=== PATIENT | male | born 1945 | race Caucasian/White ===

== ENCOUNTER 2020-12-13 09:08 | Day surgery (SDC) | payer MEDICARE ==
[2020-12-08 11:35] VITALS: BMI 32.3
--- NOTE | 2020-12-13 07:36 | P.GSHP ---
History of Present Illness H&P Date: 12/13/20 CHIEF COMPLAINT: GERD and colon screen HISTORY OF PRESENT ILLNESS: The patient is a 74-year-old male who presents with gastroesophageal reflux disease and need for colon screen. Upper and lower endoscopy were offered for further evaluation and management. PAST MEDICAL HISTORY: Please see list. PAST SURGICAL HISTORY: Please see list. MEDICATIONS: Please see list. ALLERGIES: Please see list. SOCIAL HISTORY: No illicit drug use FAMILY HISTORY: No reports of Crohn disease or ulcerative colitis. REVIEW OF ORGAN SYSTEMS: CONSTITUTIONAL: No reports of fevers or chills. GI: Denies any blood in stools or constipation. PHYSICAL EXAM: VITAL SIGNS: Stable GENERAL: Well-developed pleasant in no acute distress. HEENT: No scleral icterus. Extraocular movements grossly intact. Moist buccal mucosa. NECK: Supple without lymphadenopathy. CHEST: Unlabored respirations. Equal bilateral excursions. CARDIOVASCULAR: Regular rate and rhythm. Distal 2+ pulses. ABDOMEN: Soft, nondistended. MUSCULOSKELETAL: No clubbing, cyanosis, or edema. ASSESSMENT: 1. Gastroesophageal reflux disease 2. Colon screen. PLAN: 1. Recommend proceeding with an upper and lower endoscopy Past Medical History Additional Past Medical History / Comment(s): frequent diarrhea History of Any Multi-Drug Resistant Organisms: None Reported Past Surgical History: Cholecystectomy Additional Past Surgical History / Comment(s): zak cataracts, colonoscopy Past Anesthesia/Blood Transfusion Reactions: No Reported Reaction Smoking Status: Current every day smoker - Past Family History Mother Family Medical History: No Reported History Medications and Allergies Home Medications Medication Instructions Recorded Confirmed Type Hyoscyamine Sulfate [Levsin] 0.125 mg PO Q4H PRN 12/08/20 12/08/20 History Allergies Allergy/AdvReac Type Severity Reaction Status Date / Time Sulfa (Sulfonamide Allergy Unknown Verified 12/08/20 11:32 Antibiotics) Childhood
[~2020-12-13 09:08] MED LIST: LACTATED RINGERS 1,000 ML IV SCH; LIDOCAINE 1% (10MG/ML) FOR IV START INTRADERMA PRN
[2020-12-13 09:37] VITALS: TEMP 97.8
[2020-12-13] MEDS ORDERED: LACTATED RINGERS 1,000 ML IV ONE (09:37)
[2020-12-13] MEDS ORDERED: PROPOFOL 10 MG/ML 20 ML VIAL IV ONE (10:12)
[2020-12-13] MEDS ORDERED: LIDOCAINE 1% INJ 10MG/ML (20 ML MDV) ONE (10:12)
[2020-12-13] MEDS ORDERED: GLYCOPYRROLATE 0.2 MG/ML 2 ML VIAL ONE (10:12)
--- NOTE | 2020-12-13 10:25 | P.PCN ---
Date of Procedure: 12/13/20 Description of Procedure: PREOPERATIVE DIAGNOSIS: Gastrointestinal bleed POSTOPERATIVE DIAGNOSIS: Gastritis. Gastrointestinal bleed Diaphragmatic hiatal hernia OPERATION: Esophagogastroduodenoscopy with biopsies along antrum. SURGEON: Awilda Luque MD ANESTHESIA: MAC. INDICATIONS: The patient is a 74-year-old male who presents with a history of reflux disease. Benefits and risks of the procedure were described. Informed consent was obtained. DESCRIPTION: The patient was brought into the endoscopy suite and laid in the left lateral decubitus position. An Olympus gastroscope was passed along the posterior oropharynx down to the distal esophagus where the squamocolumnar junction was encountered at 37 cm from the incisors. The stomach was entered and no bile reflux was found. Additional findings are listed below. Biopsies with cold forceps were obtained of the antrum. The first through third portion of the duodenum was examined and unremarkable. Retroflexion of the scope confirmed Hill grade 3 lower esophageal valve. The squamocolumnar junction demonstrated LA grade B erosive esophagitis. The stomach was desufflated. The patient tolerated the procedure well. FINDINGS: Squamocolumnar junction 37 cm from the incisors. Diaphragmatic hiatus at 40 cm. Hiatal hernia, 3 cm Hill grade 3 lower esophageal valve. LA grade B erosive esophagitis. No active duodenitis. Chronic gastritis with recent bleed RECOMMENDATIONS: Upper endoscopy as needed.
[2020-12-13 10:49] VITALS: RESP 16
--- NOTE | 2020-12-13 11:20 | P.PCN ---
Date of Procedure: 12/13/20 Description of Procedure: PREOPERATIVE DIAGNOSIS: Abnormal stool test Gastrointestinal bleed POSTOPERATIVE DIAGNOSIS: Colitis, cecum Diverticulosis, sigmoid colon Sigmoid colon polyp Rectal polyp Internal/external hemorrhoid grade 3 OPERATION: Colonoscopy to the ileocecal valve and appendiceal orifice, cecum Colonoscopy with cold forceps biopsy SURGEON: Awilda Luque MD. ANESTHESIA: MAC. INDICATIONS: The patient is an 74-year-old male who presents with gastrointestinal bleeding including abnormal stool test. Benefits and risks were described and informed consent was obtained. DESCRIPTION OF PROCEDURE: The patient had undergone Sutab prep. The patient had been brought into the operating room and laid in the left lateral decubitus position. After adequate intravenous sedation, the rectum was examined with 2% lidocaine jelly. The prostate fossa was unremarkable. External hemorrhoids were encountered. The rectal tone was within normal limits. No lesions were palpated in the rectal vault. An Olympus colonoscope was advanced until the cecum, ileocecal valve and appendiceal orifice were clearly viewed. The prep was fair. Sigmoid diverticulosis was encountered. Colonic polyps were found and removed. Localized colitis on the cecum was identified with cold forcep biopsies obtain ed. Retroflexion of the scope demonstrated grade 3 internal hemorrhoids without active bleeding or inflammation. The colon was desufflated. The patient had tolerated the procedure well. Withdrawal time was over 6 minutes. FINDINGS: Aronchick preparation quality scale 3 (1-5) Internal hemorrhoids, grade 3 with recent inflammation External hemorrhoids, grade 3. No arteriovenous malformations. Sigmoid diverticulosis Colitis along sigmoid colon with cold forcep biopsies obtained. Removal of 2 polyps: - Cold forceps biopsy at 30 cm from the anal verge, 4 mm polyp, sigmoid colon - Cold forceps biopsy at 20 cm from the anal verge, 5 mm polyp, sigmoid colon - Cold forceps biopsy at 10 cm from the anal verge, 4 mm polyp, rectum RECOMMENDATIONS: Given severity of tubular adenomas, recommend repeat colonoscopy 3 years, 2023. Plan - Discharge Summary Discharge Rx Participant: No New Discharge Prescriptions: Continue Hyoscyamine Sulfate [Levsin] 0.125 mg PO Q4H PRN PRN Reason: Diarrhea Discharge Medication List Hyoscyamine Sulfate [Levsin] 0.125 mg PO Q4H PRN 12/08/20 [History] Follow up Appointment(s)/Referral(s): Awilda Luque MD [STAFF PHYSICIAN] - 12/21/20 Patient Instructions/Handouts: Advance Directives (DC), Diverticulosis Diet (GEN), Diverticulosis (GEN) Activity/Diet/Wound Care/Special Instructions: Repeat colonoscopy 3 years, 2023 Discharge Disposition: HOME SELF-CARE
[2020-12-13 11:22] VITALS: BP 158/77; PULSE 79
== END 2020-12-13 12:21 | disposition home or self-care (01) ==
LOC: ORWHC2ENDO 09:08
PROVIDERS: ATTEND Surgery Plastic and Reconstructive Surgery
DX: K52.9 Noninfective gastroenteritis and colitis, unspecified (principal); K57.30 Diverticulosis of large intestine without perforation or abscess without bleeding; K44.9 Diaphragmatic hernia without obstruction or gangrene; K29.50 Unspecified chronic gastritis without bleeding; K21.9 Gastro-esophageal reflux disease without esophagitis; F17.200 Nicotine dependence, unspecified, uncomplicated; K64.4 Residual hemorrhoidal skin tags; K64.8 Other hemorrhoids; K62.1 Rectal polyp; Z88.2 Allergy status to sulfonamides
CPT/HCPCS: 45380; 43239; 88305; J2001; J2704

== ENCOUNTER → 2020-12-28 | Outpatient (CLI) | payer MEDICARE ==
[2020-12-28 15:40] LABS: Basophils # (A) 0.04 X 10*3/uL (0.00-0.10); Basophils % (A) 0.6 %; Eosinophils # (A) 0.14 X 10*3/uL (0.04-0.35); Eosinophils % (A) 2.3 %; HCT 45.5 % (39.6-50.0); HGB 15.3 g/dL (13.0-17.0); Lymphocytes % (A) 32.2 %; MCH 33.8 pg (27.0-32.0); MCHC 33.6 g/dL (32.0-37.0); MCV 100.7 fL (80.0-97.0); Mean Platelet Volume 10.6 fL (9.5-12.2); Monocytes % (A) 11.3 %; Neutrophils # (A) 3.32 X 10*3/uL (1.80-7.70); Neutrophils % (A) 53.3 %; Platelet Count 276 X 10*3/uL (140-440); RBC 4.52 X 10*6/uL (4.40-5.60); RDW 14.8 % (11.5-14.5); WBC 6.22 X 10*3/uL (4.50-10.00)
[2020-12-29 02:05] LABS: Albumin 4.1 g/dL (3.80-4.90); Albumin/Globulin Ratio 1.46 (1.60-3.17); BUN/Creat Ratio 8.75 Ratio (12.00-20.00); Calcium 9.2 mg/dL (8.7-10.3); Chol/HDL Ratio 5.26; Globulin 2.8 g/dL (1.6-3.3); Potassium 4.3 mmol/L (3.5-5.5); Total Bilirubin 0.9 mg/dL (0.3-1.2); Total Protein 6.9 g/dL (6.2-8.2)
== END | disposition home or self-care (01) ==
LOC: LABWHC1 10:44
PROVIDERS: ATTEND Internal Medicine Cardiovascular Disease
DX: Z01.812 Encounter for preprocedural laboratory examination (principal); I10 Essential (primary) hypertension
CPT/HCPCS: 36415; 80053; 80061; 85025

== ENCOUNTER → 2021-03-09 | Outpatient (CLI) | payer MEDICARE ==
--- NOTE | 2021-03-09 19:46 | CT ---
EXAMINATION TYPE: CT abdomen pelvis w con DATE OF EXAM: 03/09/2021 COMPARISON: None HISTORY: abd pain, diverticulitis CT DLP: 1434.5 mGycm CONTRAST: CT scan of the abdomen and pelvis is performed with Oral Contrast and with IV Contrast, patient injec oliva with 100 mL of Isovue 300. FINDINGS: LUNG BASES-: No visible nodule. No infiltrate. LIVER/GB: The gallbladder is surgically absent. Nodular peripheral hepatic contour is compatible with cirrhotic liver disease. No intrahepatic lesion seen. No biliary ductal prominence are noted. PANCREAS: No inflammation. No distinct mass. SPLEEN: No splenic enlargement. No lesion seen. ADRENALS: No nodule. No thickening. KIDNEYS/BLADDER: No hydronephrosis. No nephrolithiasis. No distinct renal mass. Urinary bladder g rossly unremarkable. BOWEL: Normal appendix. Normal bowel caliber. No inflammation. Sigmoid diverticulosis without diver ticulitis. GENITAL ORGANS: No gross abnormality. LYMPH NODES: No greater than 1cm abdominal or pelvic lymph nodes are appreciated. AORTA: No significant abnormality. OSSEOUS STRUCTURES: No significant abnormality is seen. OTHER: No significant additional abnormality is seen. IMPRESSION: 1. Sigmoid diverticulosis without diverticulitis. 2. Cirrhotic liver disease.
== END | disposition home or self-care (01) ==
LOC: RADCTMAIN 17:09
PROVIDERS: ATTEND Surgery Plastic and Reconstructive Surgery
DX: K57.30 Diverticulosis of large intestine without perforation or abscess without bleeding (principal); K74.60 Unspecified cirrhosis of liver
CPT/HCPCS: 82565; 84520; 74177; 36415; Q9967

== ENCOUNTER → 2021-12-18 | Outpatient (CLI) | payer OTHER ==
--- NOTE | 2021-12-18 09:16 | US ---
EXAMINATION TYPE: US duplex aorta DATE OF EXAM: 12/18/2021 COMPARISON: CT CLINICAL HISTORY: Z87.891 AAA SCREENING. AAA screening TECHNIQUE: Multiple sonographic images of the abdominal aorta are obtained. FINDINGS: EXAM MEASUREMENTS: Abdominal Aorta: Proximal: 2.5 x 2.5 cm Mid: 1.9 x 1.8 cm Distal: 2.3 x 2.3 cm Bifurcation: MARY: 1.3 x 1.1 cm AUDRA: 1.2 x 1.0 cm SPINNER TENDER NOTES: Ectatic aorta without evidence of AAA, wall calcifications visualized IMPRESSION: No evidence for aortic aneurysm.
== END | disposition home or self-care (01) ==
LOC: RADUSWWP 08:46
DX: Z87.891 Personal history of nicotine dependence (principal)
CPT/HCPCS: 93979

== ENCOUNTER → 2022-01-16 | Outpatient (CLI) | payer OTHER ==
--- NOTE | 2022-01-16 21:17 | CTL ---
EXAMINATION TYPE: CT Low Dose Lung DATE OF EXAM ORDERED: 01/16/2022 HISTORY: Lung cancer screening CT DLP: 125.[address] CTDI: 3.4 mGy Automated exposure control for dose reduction was used. SCREENING VISIT: Initial screening COMPARISON: None TECHNIQUE: Low dose computed tomography scan was performed through the chest at 1 mm thick sections a nd reconstructed images in multiple planes at 1 mm and [address] DIAGNOSTIC QUALITY: Satisfactory FINDINGS: LUNG NODULES: None. LUNGS: COPD: Severity: None Fibrosis: Severity: None Lymph nodes: None Other findings: Left intrafissural lymph node series 6 image 32. RIGHT PLEURAL SPACE: Effusion: None Calcification: None Thickening: None Pneumothorax: None LEFT PLEURAL SPACE: Effusion: None Calcification: None Thickening: None Pneumothorax: None HEART: Heart Size: Normal Coronary Calcification: Moderate to severe coronary artery atherosclerosis. Pericardial Effusion: None OTHER FINDINGS: Upper abdomen: None Bony thorax: None Supraclavicular region: None Other: There is a nodular contour to the liver. Large distal paraesophageal lymph node measuring up t o 17 mm. Bilateral fat containing Bochdalek hernias. There is mild gynecomastia changes bilaterally. Moderate atherosclerosis of the arterial vasculature. IMPRESSION: 1. No clinically significant pulmonary nodules. 2. Enlarged distal para esophageal lymph node measuring up to 17 mm. Stable back to 03/09/2021. Clin ical correlation advised. 3. Moderate to severe coronary artery atherosclerosis. 4. Nodular contour to liver suggestive consistent with hepatic cirrhosis. Similar back to 03/09/[address] LUNG RAD AND CT CHEST RECOMMENDATION: Lung-Rad 1 Negative: Continue annual screening with LDCT in 12 months. S Modifier (other clinically significant findings): S, hepatic cirrhosis, moderate to severe coronary artery atherosclerosis.
== END | disposition home or self-care (01) ==
LOC: RADCTMAIN 17:36
DX: Z12.2 Encounter for screening for malignant neoplasm of respiratory organs (principal); Z87.891 Personal history of nicotine dependence
CPT/HCPCS: 71271

== ENCOUNTER → 2022-02-01 | Outpatient (CLI) | payer OTHER ==
--- NOTE | 2022-02-01 08:31 | US ---
EXAMINATION TYPE: US liver DATE OF EXAM: 02/01/2022 COMPARISON: NONE CLINICAL HISTORY: K74.60 CIRRHOSIS OF LIVER. known cirrhosis, cholecystectomy TECHNIQUE: Multiple sonographic images of the right upper quadrant are obtained. FINDINGS: EXAM MEASUREMENTS: Liver Length: 13.9 cm Gallbladder Wall: Surgically absent CBD: 0.6 cm Right Kidney: 11.7 x 4.0 x 4.7 cm Pancreas: wnl Liver: enlarged nodular heterogeneous liver Gallbladder: Surgically absent Evidence for sonographic Adams's sign: no CBD: wnl Right Kidney: wnl IMPRESSION: Hepatomegaly with mild fatty infiltration
== END | disposition home or self-care (01) ==
LOC: RADUSWWP 07:27
DX: K74.60 Unspecified cirrhosis of liver (principal)
CPT/HCPCS: 76705

== ENCOUNTER → 2022-10-10 | Outpatient (CLI) | payer OTHER ==
--- NOTE | 2022-10-10 12:55 | US ---
EXAMINATION TYPE: US liver DATE OF EXAM: 10/10/2022 COMPARISON: US 02/01/22 CLINICAL INDICATION: Male, 76 years old with history of K70.30 ALCOHOLIC CIRRHOSIS; Alcoholic cirrhos is. Cholecystectomy. TECHNIQUE: Multiple sonographic images of the right upper quadrant are obtained. FINDINGS: EXAM MEASUREMENTS: Liver Length: 19.5 cm Gallbladder: Surgically absent CBD: 0.62 cm Right Kidney: 11.6 x 5.4 x 5.9 cm SLAB CONDITIONER SUPERVISOR NOTES: Limited due to gas. Pancreas: Not well visualized. Only a small portion of the pancreatic head and neck is seen and show s no gross abnormal mobility. Liver: Coarsened parenchymal echotexture. Slight contour nodularity. No focal lesion seen. Gallbladder: Surgically absent Evidence for sonographic Adams's sign: No CBD: Borderline dilated. Right Kidney: No hydronephrosis or masses seen IMPRESSION: 1. Cirrhotic morphology of the liver. No sonographic evidence for hepatoma. 2. Bile duct is borderline dilated, acceptable given postcholecystectomy status and patient's age, st able caliber from prior.
== END | disposition home or self-care (01) ==
LOC: RADUSWWP 07:33
PROVIDERS: ATTEND Internal Medicine Gastroenterology
DX: K70.30 Alcoholic cirrhosis of liver without ascites (principal); K83.8 Other specified diseases of biliary tract; Z90.49 Acquired absence of other specified parts of digestive tract
CPT/HCPCS: 76705

== ENCOUNTER 2023-01-02 12:37 | Emergency (ER) | payer OTHER ==
--- NOTE | 2023-01-02 13:04 | ED ---
General Adult HPI - General Source: patient, RN notes reviewed Mode of arrival: ambulatory Limitations: no limitations <Yuval Prater - Last Filed: 01/02/23 13:03> <Nicole Calderon - Last Filed: 01/02/23 16:08> - General Stated complaint: rt foot pain Time Seen by Provider: 01/02/23 13:03 - History of Present Illness Initial comments: 77-year-old male presents emergency department with chief complaint of right foot pain. Patient states been painful last 3 days. Patient states that hurts to ambulate there is no pain at rest denies any wound lesions or sores denies trauma. Patient states there is had no new footwear he denies any other associated symptoms. (Yuval Prater) Maximilian is a pleasant 77-year-old male presents the ER today for evaluation of 3 days of pain that he describes as pain in his foot with walking. However upon further evaluation patient does localize the pain to the ankle and pain with range of motion. No injury, no trauma no previous episodes similar to this. No fevers no recent illness. (Nicole Calderon) - Related Data Home Medications Medication Instructions Recorded Confirmed Hyoscyamine Sulfate [Levsin] 0.125 mg PO Q4H PRN 12/08/20 12/08/20 Previous Rx's Medication Instructions Recorded Naproxen 250 mg PO Q8H PRN #30 tablet 01/02/23 Allergies Allergy/AdvReac Type Severity Reaction Status Date / Time Sulfa (Sulfonamide Allergy Unknown Verified 01/02/23 13:04 Antibiotics) Childhood Review of Systems ROS Other: All systems not noted in ROS Statement are negative. <Yuval Prater - Last Filed: 01/02/23 13:03> ROS Other: All systems not noted in ROS Statement are negative. <Nicole Calderon - Last Filed: 01/02/23 16:08> ROS Statement: Those systems with pertinent positive or pertinent negative responses have been documented in the HPI. Past Medical History Additional Past Medical History / Comment(s): frequent diarrhea History of Any Multi-Drug Resistant Organisms: None Reported Past Surgical History: Cholecystectomy Additional Past Surgical History / Comment(s): zak cataracts, colonoscopy Past Anesthesia/Blood Transfusion Reactions: No Reported Reaction Smoking Status: Current every day smoker - Past Family History Mother Family Medical History: No Reported History <Yuval Prater - Last Filed: 01/02/23 13:03> General Exam <Yuval Prater - Last Filed: 01/02/23 13:03> <Nicole Calderon - Last Filed: 01/02/23 16:08> - General Exam Comments Initial Comments: Visual Physical Exam Vital signs reviewed General: Well-appearing, nontoxic, no acute distress. Head: Normocephalic, atraumatic Eyes: PERRLA, EOMI ENT: Airway patent Chest: Nonlabored breathing Skin: No visual rash, normal skin tone Neuro: Alert and oriented 3 Musculoskeletal: No gross abnormalities (Yuval Prater) Physical Exam GENERAL: Patient is well-developed and well-nourished. Patient is nontoxic and well-hydrated and is in no distress. HENT: Normocephalic, Atraumatic. EYES: PERRL, EOMI PULMONARY: Unlabored respirations. CARDIOVASCULAR: RRR Warm and well perfused extremities ABDOMEN: Non-distended SKIN: No rashes or bruising : Deferred NEUROLOGIC: Alert and oriented Normal speech Normal gait MUSCULOSKELETAL: There is small effusion in the right ankle and there is pain with range of motion, minimal warmth or overlying redness PSYCHIATRIC: No SI/HI (Nicole Calderon) Course Vital Signs 01/02/23 13:01 Temperature 98.7 F Pulse Rate 70 Respiratory 16 Rate Blood Pressure 112/71 O2 Sat by Pulse 98 Oximetry Medical Decision Making <Yuval Prater - Last Filed: 01/02/23 13:03> - Lab Data Result diagrams: 01/02/23 13:38 01/02/23 13:38 <Nicole Calderon - Last Filed: 01/02/23 16:08> - Medical Decision Making I performed a quick note portion of this chart signed Yuval Prater PA-C (Yuval Prater) Was pt. sent in by a medical professional or institution ([facility], MILL ATTENDANT, urgent care, hospital, or long-term...) When possible be specific @ -No Did you speak to anyone other than the patient for history (EMS, parent, family, police, friend...)? What history was obtained from this source @ -No Did you review nursing and triage notes (agree or disagree)? Why? @ -I reviewed and agree with nursing and triage notes Were old charts reviewed (outside hosp., previous admission, EMS record, old EKG, old radiological studies, urgent care reports/EKG's, long-term records)? Report findings @ -No old charts were reviewed Differential Diagnosis (chest pain, altered mental status, abdominal pain women, abdominal pain men, vaginal bleeding, weakness, fever, dyspnea, syncope, headache, dizziness, GI bleed, back pain, seizure, CVA, palpatations, mental health, musculoskeletal)? @ -Differential Musculoskeletal Muscular strain, contusion, ligament sprain, fracture, arthritis, septic arthritis, bursitis, cellulitis, muscle spasm, nerve compression, DVT, arterial occlusion, herpes zoster, electrolyte abnormality, tumor.... This is not meant to be in all inclusive list EKG interpreted by me (3pts min.). @ -As above X-rays interpreted by me (1pt min.). @ -No obvious fractures or dislocations CT interpreted by me (1pt min.). @ -None done U/S interpreted by me (1pt. min.). @ -None done What testing was considered but not performed or refused? (CT, X-rays, U/S, labs)? Why? @ -None What meds were considered but not given or refused? Why? @ -None Did you discuss the management of the patient with other professionals (professionals i.e. , PA, MILL ATTENDANT, lab, RT, psych nurse, social services technician, representative personal service, teacher, staff readiness officer, case briefer)? Give summary @ -No Was smoking cessation discussed for >3mins.? @ -No Was critical care preformed (if so, how long)? @ -No Were there social determinants of health that impacted care today? How? (Homelessness, low income, unemployed, alcoholism, drug addiction, transportation, low edu. Level, literacy, decrease access to med. care, correction, rehab)? @ -No Was there de-escalation of care discussed even if they declined (Discuss DNR or withdrawal of care, Hospice)? DNR status @ -No What co-morbidities impacted this encounter? (DM, HTN, Smoking, COPD, CAD, Cancer, CVA, ARF, Chemo, Hep., AIDS, mental health diagnosis, sleep apnea, morbid obesity)? @ -None Was patient admitted / discharged? Hospital course, mention meds given and route, prescriptions, significant lab abnormalities, going to OR and other pertinent info. @ -The patient was seen and evaluated in the emergency department, history and physical exam are consistent with a right ankle pain, atraumatic, no Sirs criteria patient's quite comfortable appearing. There is a small effusion labs are obtained there is mild elevation of the inflammatory markers have a high suspicion for gout we'll treat as such. Advised patient follow with orthopedics for reevaluation or return to the ER for any acute worsening or development of new or concerning symptoms. Undiagnosed new problem with uncertain prognosis? @ -No Drug Therapy requiring intensive monitoring for toxicity (Heparin, Nitro, Insulin, Cardizem)? @ -No Were any procedures done? @ -No Diagnosis/symptom? @ -Acute gout Acute, or Chronic, or Acute on Chronic? @ -Acute Uncomplicated (without systemic symptoms) or Complicated (systemic symptoms)? @ -Uncomplicated Side effects of treatment? @ -No Exacerbation, Progression, or Severe Exacerbation? @ -No Poses a threat to life or bodily function? How? (Chest pain, [place], [place], pneumonia, PE, COPD, DKA, ARF, appy, cholecystitis, CVA, Diverticulitis, Homicidal, Suicidal, threat to staff... and all critical care pts) @ -No (Nicole Calderon) - Lab Data Lab Results 01/02/23 01/02/23 Range/Units 13:38 13:38 WBC 9.8 (3.8-10.6) k/uL RBC 4.04 L (4.30-5.90) m/uL Hgb 12.4 L (13.0-17.5) gm/dL Hct 38.0 L (39.0-53.0) % MCV 94.2 (80.0-100.0) fL MCH 30.7 (25.0-35.0) pg MCHC 32.6 (31.0-37.0) g/dL RDW 15.2 (11.5-15.5) % Plt Count 280 (150-450) k/uL MPV 7.9 Neutrophils % 69 % Lymphocytes % 17 % Monocytes % 9 % Eosinophils % 2 % Basophils % 0 % Neutrophils # 6.8 (1.3-7.7) k/uL Lymphocytes # 1.7 (1.0-4.8) k/uL Monocytes # 0.9 (0-1.0) k/uL Eosinophils # 0.2 (0-0.7) k/uL Basophils # 0.0 (0-0.2) k/uL ESR 23 H (0-15) mm/hr Sodium 139 (137-145) mmol/L Potassium 4.4 (3.5-5.1) mmol/L Chloride 104 (98-107) mmol/L Carbon Dioxide 26 (22-30) mmol/L Anion Gap 9 mmol/L BUN 14 (9-20) mg/dL Creatinine 0.88 (0.66-1.25) mg/dL Est GFR (CKD-EPI)AfAm >90 (>60 ml/min/1.73 sqM) Est GFR (CKD-EPI)NonAf 84 (>60 ml/min/1.73 sqM) Glucose 110 H (74-99) mg/dL Uric Acid 8.0 (3.5-8.5) mg/dL Calcium 8.8 (8.4-10.2) mg/dL Total Bilirubin 1.1 (0.2-1.3) mg/dL AST 46 (17-59) U/L ALT 23 (4-49) U/L Alkaline Phosphatase 77 (38-126) U/L C-Reactive Protein 5.8 H (<1.0) mg/dL Total Protein 6.9 (6.3-8.2) g/dL Albumin 3.5 (3.5-5.0) g/dL Disposition <Yuval Prater M - Last Filed: 01/02/23 13:03> Is patient prescribed a controlled substance at d/c from ED?: No <Nicole Calderon - Last Filed: 01/02/23 16:08> Clinical Impression: Gout attack Disposition: HOME SELF-CARE Condition: Stable Instructions (If sedation given, give patient instructions): Gout (ED) Prescriptions: Naproxen 250 mg PO Q8H PRN #30 tablet PRN Reason: Pain Referrals: [facility],Clinic [Primary Care Provider] - 1-2 days Rl Adams MD [STAFF PHYSICIAN] - 1-2 days
[2023-01-02 13:50] LABS: Basophils % (A) 0 %; Eosinophils # (A) 0.2 k/uL (0-0.7); Eosinophils % (A) 2 %; HGB 12.4 gm/dL (13.0-17.5); Lymphocytes # (A) 1.7 k/uL (1.0-4.8); Lymphocytes % (A) 17 %; MCH 30.7 pg (25.0-35.0); MCHC 32.6 g/dL (31.0-37.0); MCV 94.2 fL (80.0-100.0); Mean Platelet Volume 7.9; Monocytes # (A) 0.9 k/uL (0-1.0); Monocytes % (A) 9 %; Neutrophils # (A) 6.8 k/uL (1.3-7.7); Neutrophils % (A) 69 %; Platelet Count 280 k/uL (150-450); RBC 4.04 m/uL (4.30-5.90); RDW 15.2 % (11.5-15.5); WBC 9.8 k/uL (3.8-10.6)
--- NOTE | 2023-01-02 14:00 | XR ---
EXAMINATION TYPE: XR ankle complete RT DATE OF EXAM: 01/02/2023 COMPARISON: NONE HISTORY: Pain FINDINGS: Three views of the ankle demonstrate lucent lesion of the talar dome.. The joint spaces are preserve d. The osseous structures are intact. Diffuse soft tissue edema. Tiny plantar calcaneal spur. Pes p lanus deformity. Faint vascular calcifications. IMPRESSION: 1. 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 Recomme nd follow-up MRI.
[2023-01-02 14:10] LABS: ALT 23 U/L (4-49); AST 46 U/L (17-59); African American GFR (CKD) >90 (>60 ml/min/1.73 sqM); Albumin 3.5 g/dL (3.5-5.0); Alkaline Phosphatase 77 U/L (38-126); Anion Gap 9 mmol/L; Blood Urea Nitrogen 14 mg/dL (9-20); C Reactive Protein 5.8 mg/dL (<1.0); Calcium 8.8 mg/dL (8.4-10.2); Carbon Dioxide 26 mmol/L (22-30); Chloride 104 mmol/L (98-107); Glucose 110 mg/dL (74-99); Non-African American GFR(CKD) 84 (>60 ml/min/1.73 sqM); Potassium 4.4 mmol/L (3.5-5.1); Sodium 139 mmol/L (137-145); Total Bilirubin 1.1 mg/dL (0.2-1.3); Total Protein 6.9 g/dL (6.3-8.2)
--- NOTE | 2023-01-02 14:27 | XR ---
EXAMINATION TYPE: XR foot complete RT DATE OF EXAM: 01/02/2023 COMPARISON: NONE HISTORY: Pain TECHNIQUE: Three views are submitted. FINDINGS: There is a lucent lesion of the talar dome.. The joint spaces are preserved. The osseous structures are intact. Diffuse soft tissue edema. Tiny plantar calcaneal spur. Pes planus deformity. Faint vas cular calcifications. Severe arthropathy first MTP with hallux valgus deformity. Complete loss of joint space. IMPRESSION: 1. 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 Recomme nd follow-up MRI. 2. Severe first MTP joint hypertrophic arthropathy.
[2023-01-02 14:43] LABS: Erythrocyte Sedimentation Rate 23 mm/hr (0-15)
[2023-01-02] MEDS ORDERED: COLCHICINE 0.6 MG EACH PO STA (15:24)
[2023-01-02 16:08] VITALS: BP 135/66; PULSE 60; RESP 18; TEMP 97.7
[2023-01-02] MEDS ORDERED: COLCHICINE 0.6 MG EACH PO ONE (16:30)
== END 2023-01-02 16:06 | disposition home or self-care (01) ==
LOC: EC 12:37
DX: M10.9 Gout, unspecified (principal); F17.200 Nicotine dependence, unspecified, uncomplicated; Z88.2 Allergy status to sulfonamides; Z90.49 Acquired absence of other specified parts of digestive tract
CPT/HCPCS: 36415; 80053; 84550; 85025; 85652; 86140; 99283

== ENCOUNTER → 2023-03-20 | Outpatient (CLI) | payer OTHER ==
--- NOTE | 2023-03-20 15:39 | CTL ---
EXAMINATION TYPE: CT Low Dose Lung DATE OF EXAM ORDERED: 03/20/2023 HISTORY: Z87.891 PERSONAL HISTORY OF NICOTINE DEPENDENCE. Lung cancer screening. Current smoker, [address] DLP: 94.[address] CTDI: 2.4 mGy Automated exposure control for dose reduction was used. SCREENING VISIT: Follow-up COMPARISON: CT low-dose lung 01/16/2022 TECHNIQUE: Low dose computed tomography scan was performed through the chest at 1 mm thick sections a nd reconstructed images in multiple planes at 1 mm and [address] DIAGNOSTIC QUALITY: Satisfactory FINDINGS: LUNG NODULES: No clinically significant pulmonary nodules. Stable 3 mm left intrafissural lymph node (series 6, image 34). No new or enlarging pulmonary nodules. LUNGS: COPD: Severity: Mild Fibrosis: Severity: None Lymph nodes: None Other findings: None RIGHT PLEURAL SPACE: Effusion: None Calcification: None Thickening: None Pneumothorax: None LEFT PLEURAL SPACE: Effusion: None Calcification: None Thickening: None Pneumothorax: None HEART: Heart Size: Normal Coronary Calcification: Moderate to severe Pericardial Effusion: None OTHER FINDINGS: Upper abdomen: Stable distal paraesophageal 1.2 cm short axis lymph node. Similar nodular contour to the liver. Bony thorax: Mild degenerative changes of the thoracic spine. Supraclavicular region: None Other: Fat filled bilateral Bochdalek hernias. Moderate atherosclerotic calcification of the aorta is branches. IMPRESSION: 1. No clinically significant pulmonary nodule. 2. Stable enlarged distal paraesophageal lymph node. 3. Similar nodular contour to the liver. Correlate for cirrhosis. CT LUNG RAD AND CT CHEST RECOMMENDATION: Lung-Rad 1 Negative: Continue annual screening with LDCT in 12 months.
== END | disposition home or self-care (01) ==
LOC: RADCTMAIN 15:06
DX: Z12.2 Encounter for screening for malignant neoplasm of respiratory organs (principal); F17.210 Nicotine dependence, cigarettes, uncomplicated; R91.1 Solitary pulmonary nodule; R59.0 Localized enlarged lymph nodes
CPT/HCPCS: 71271

== ENCOUNTER 2023-08-14 11:40 | Emergency (ER) | payer OTHER ==
[2023-08-14 12:25] VITALS: TEMP 97.8
--- NOTE | 2023-08-14 13:24 | ED ---
Recheck HPI - General Chief Complaint: Recheck/Abnormal Lab/Rx Stated Complaint: transfusion Time Seen by Provider: 08/14/23 13:14 Source: patient, RN notes reviewed, old records reviewed Mode of arrival: wheelchair Limitations: no limitations - History of Present Illness Initial Comments: This is a 77-year-old male for recheck outpatient lab testing low hemoglobin. Patient presents to us with a recent surgery, patient about 4 to 5 weeks ago had his hemoglobin tested and was found to have low hemoglobin of 10-1/2, most recent hemoglobin test was in the low sevens. Patient is not on blood thinners denies abdominal pain nausea vomiting or diarrhea. Patient denies any active bleeding, but he does feel weak lightheaded dizzy at times short of breath MD Complaint: abnormal lab (Low hemoglobin) -: unknown Returns Today for: Called Because of Abnormal Lab/Test Symptoms Since Prior Visit: no new symptoms Context: called for abnormal lab result Associated Symptoms: none Treatments Prior to Arrival: other (0) - Related Data Home Medications Medication Instructions Recorded Confirmed Hyoscyamine Sulfate [Levsin] 0.125 mg PO Q4H PRN 12/08/20 12/08/20 Previous Rx's Medication Instructions Recorded Naproxen 250 mg PO Q8H PRN #30 tablet 01/02/23 Allergies Allergy/AdvReac Type Severity Reaction Status Date / Time Sulfa (Sulfonamide Allergy Unknown Verified 08/14/23 11:57 Antibiotics) Childhood Review of Systems ROS Statement: Those systems with pertinent positive or pertinent negative responses have been documented in the HPI. ROS Other: All systems not noted in ROS Statement are negative. Past Medical History Past Medical History: Hypertension Additional Past Medical History / Comment(s): frequent diarrhea History of Any Multi-Drug Resistant Organisms: None Reported Past Surgical History: Cholecystectomy Additional Past Surgical History / Comment(s): zak cataracts, colonoscopy Past Anesthesia/Blood Transfusion Reactions: No Reported Reaction Past Psychological History: No Psychological Hx Reported Smoking Status: Current every day smoker Past Alcohol Use History: Occasional Past Drug Use History: Marijuana - Past Family History Mother Family Medical History: No Reported History General Exam Limitations: no limitations General appearance: alert, in no apparent distress Head exam: Present: atraumatic, normocephalic, normal inspection Eye exam: Present: normal appearance, PERRL, EOMI. Absent: scleral icterus, conjunctival injection, periorbital swelling ENT exam: Present: normal exam, mucous membranes moist Neck exam: Present: normal inspection. Absent: tenderness, meningismus, lymphadenopathy Respiratory exam: Present: normal lung sounds bilaterally. Absent: respiratory distress, wheezes, rales, rhonchi, stridor Cardiovascular Exam: Present: regular rate, normal rhythm, normal heart sounds. Absent: systolic murmur, diastolic murmur, rubs, gallop, clicks GI/Abdominal exam: Present: soft, normal bowel sounds. Absent: distended, tenderness, guarding, rebound, rigid Extremities exam: Present: normal inspection, full ROM, normal capillary refill. Absent: tenderness, pedal edema, joint swelling, calf tenderness Back exam: Present: normal inspection Neurological exam: Present: alert, oriented X3, CN II-XII intact Psychiatric exam: Present: normal affect, normal mood Skin exam: Present: warm, dry, intact, normal color. Absent: rash Course Vital Signs 08/14/23 08/14/23 08/14/23 11:52 16:47 18:05 Temperature 97.8 F Pulse Rate 59 L 67 58 L Respiratory 18 18 16 Rate Blood Pressure 135/67 160/51 125/51 O2 Sat by Pulse 99 99 98 Oximetry - Reevaluation(s) Reevaluation #1: 08/14/23 15:28 Medical records reviewed Reevaluation #2: 08/14/23 15:28 Patient remains asymptomatic Reevaluation #3: 08/14/23 15:29 Patient informed of results and questions answered Reevaluation #4: Was pt. sent in by a medical professional or institution (, PA, MAILROOM COURIER, urgent care, hospital, or care home...) When possible be specific @ -no Did you speak to anyone other than the patient for history (EMS, parent, family, police, friend...)? What history was obtained from this source @ -no Did you review nursing and triage notes (agree or disagree)? Why? @ -agree Are old charts reviewed (outside hosp., previous admission, EMS record, old EKG, old radiological studies, urgent care reports/EKG's, care home records)? Report findings @ -yes Differential Diagnosis (chest pain, altered mental status, abdominal pain women, abdominal pain men, vaginal bleeding, weakness, fever, dyspnea, syncope, headache, dizziness, GI bleed, back pain, seizure, CVA, palpatations, mental health, musculoskeletal)? @ -prior EKG interpreted by me (3pts min.). @ -yes X-rays interpreted by me (1pt min.). @ -no CT interpreted by me (1pt min.). @ -no U/S interpreted by me (1pt. min.). @ -no What testing was considered but not performed or refused? (CT, X-rays, U/S, labs)? Why? @ -none What meds were considered but not given or refused? Why? @ -none Did you discuss the management of the patient with other professionals (professionals i.e. Dr., PA, MAILROOM COURIER, lab, RT, psych nurse, social services, county demonstrator, teacher, chief security and safety officer, case packer and sealer)? Give summary @ -no Was smoking cessation discussed for >3mins.? @ -no Was critical care preformed (if so, how long)? @ -yes31 Were there social determinants of health that impacted care today? How? (Homelessness, low income, unemployed, alcoholism, drug addiction, transportation, low edu. Level, literacy, decrease access to med. care, assisted, rehab)? @ -none Was there de-escalation of care discussed even if they declined (Discuss DNR or withdrawal of care, Hospice)? DNR status @ -no What co-morbidities impacted this encounter? (DM, HTN, Smoking, COPD, CAD, Cancer, CVA, ARF, Chemo, Hep., AIDS, mental health diagnosis, sleep apnea, morbid obesity)? @ -none Was patient admitted / discharged? Hospital course, mention meds given and route, prescriptions, significant lab abnormalities, going to OR and other pertinent info. @ - 77 male to ER for evaluation, significant anemia with fecal occult blood test positive stool. Patient is not on any blood thinners, will be transferred for further management of low hemoglobin as he recently had a drop from 10-7 Transferred Admitted to inpatient Undiagnosed new problem with uncertain prognosis? @ -no Drug Therapy requiring intensive monitoring for toxicity (Heparin, Nitro, Insulin, Cardizem)? @ -no Were any procedures done? @ -no Diagnosis/symptom? @ -Anemia Acute, or Chronic, or Acute on Chronic? @ -Acute Uncomplicated (without systemic symptoms) or Complicated (systemic symptoms)? @ -Complicated Side effects of treatment? @ -no Exacerbation, Progression, or Severe Exacerbation? @ -exacerbation Poses a threat to life or bodily function? How? (Chest pain, USA, PR, pneumonia, PE, COPD, DKA, ARF, appy, cholecystitis, CVA, Diverticulitis, Homicidal, Suicidal, threat to staff... and all critical care pts) @ -yes significant anemia - Consultations Consultation #1: Spoke with [facility] who accept patient in transfer Medical Decision Making - Medical Decision Making 77 male to ER for evaluation, significant anemia with fecal occult blood test positive stool. Patient is not on any blood thinners, will be transferred for further management of low hemoglobin as he recently had a drop from 10-7 - Lab Data Result diagrams: 08/14/23 13:57 08/14/23 13:57 Lab Results 08/14/23 08/14/23 08/14/23 Range/Units 13:54 13:57 13:57 WBC 4.7 (3.8-10.6) k/uL RBC 2.57 L (4.30-5.90) m/uL Hgb 7.3 L (13.0-17.5) gm/dL Hct 24.4 L (39.0-53.0) % MCV 95.1 (80.0-100.0) fL MCH 28.5 (25.0-35.0) pg MCHC 30.0 L (31.0-37.0) g/dL RDW 16.0 H (11.5-15.5) % Plt Count 235 (150-450) k/uL MPV 8.7 Neutrophils % 62 % Lymphocytes % 23 % Monocytes % 9 % Eosinophils % 2 % Basophils % 1 % Neutrophils # 2.9 (1.3-7.7) k/uL Lymphocytes # 1.1 (1.0-4.8) k/uL Monocytes # 0.4 (0-1.0) k/uL Eosinophils # 0.1 (0-0.7) k/uL Basophils # 0.0 (0-0.2) k/uL Hypochromasia Marked PT 11.8 (10.0-12.5) sec INR 1.1 (<1.2) Sodium (137-145) mmol/L Potassium (3.5-5.1) mmol/L Chloride (98-107) mmol/L Carbon Dioxide (22-30) mmol/L Anion Gap mmol/L BUN (9-20) mg/dL Creatinine (0.66-1.25) mg/dL Est GFR (CKD-EPI)AfAm (>60 ml/min/1.73 sqM) Est GFR (CKD-EPI)NonAf (>60 ml/min/1.73 sqM) Glucose (74-99) mg/dL Calcium (8.4-10.2) mg/dL Total Bilirubin (0.2-1.3) mg/dL AST (17-59) U/L ALT (4-49) U/L Alkaline Phosphatase (38-126) U/L Total Protein (6.3-8.2) g/dL Albumin (3.5-5.0) g/dL Stool Occult Blood (Negative) Blood Type O Positive Blood Type Confirm Blood Type Recheck No Previous Record Bld Type Recheck Status CABO Indicated Antibody Screen NEGATIVE Spec Expiration Date 08/17/2023 - 235308/14/23 08/14/23 08/14/23 Range/Units 13:57 14:15 16:43 WBC (3.8-10.6) k/uL RBC (4.30-5.90) m/uL Hgb (13.0-17.5) gm/dL Hct (39.0-53.0) % MCV (80.0-100.0) fL MCH (25.0-35.0) pg MCHC (31.0-37.0) g/dL RDW (11.5-15.5) % Plt Count (150-450) k/uL MPV Neutrophils % % Lymphocytes % % Monocytes % % Eosinophils % % Basophils % % Neutrophils # (1.3-7.7) k/uL Lymphocytes # (1.0-4.8) k/uL Monocytes # (0-1.0) k/uL Eosinophils # (0-0.7) k/uL Basophils # (0-0.2) k/uL Hypochromasia PT (10.0-12.5) sec INR (<1.2) Sodium 142 (137-145) mmol/L Potassium 3.9 (3.5-5.1) mmol/L Chloride 115 H (98-107) mmol/L Carbon Dioxide 16 L (22-30) mmol/L Anion Gap 11 mmol/L BUN 12 (9-20) mg/dL Creatinine 0.97 (0.66-1.25) mg/dL Est GFR (CKD-EPI)AfAm 88 (>60 ml/min/1.73 sqM) Est GFR (CKD-EPI)NonAf 76 (>60 ml/min/1.73 sqM) Glucose 99 (74-99) mg/dL Calcium 8.6 (8.4-10.2) mg/dL Total Bilirubin 0.5 (0.2-1.3) mg/dL AST 38 (17-59) U/L ALT 15 (4-49) U/L Alkaline Phosphatase 83 (38-126) U/L Total Protein 6.2 L (6.3-8.2) g/dL Albumin 3.2 L (3.5-5.0) g/dL Stool Occult Blood Positive (Negative) Blood Type Blood Type Confirm O Positive Blood Type Recheck Bld Type Recheck Status Antibody Screen Spec Expiration Date Critical Care Time Critical Care Time: Yes Total Critical Care Time: 31 Disposition Clinical Impression: Anemia, GI bleed, Colitis, Gastritis with bleeding Disposition: OTHER INSTITUTION NOT DEFINED Condition: Good Is patient prescribed a controlled substance at d/c from ED?: No Referrals: [facility] [Primary Care Provider] - 1-2 days Time of Disposition: 15:30 - Out of Hospital Transfer - Req. Specs Out of Hospital Transfer - Requested Specifics: Other Emergency Center ([facility])
[2023-08-14 14:15] LABS: Basophils % (A) 1 %; Eosinophils # (A) 0.1 k/uL (0-0.7); Eosinophils % (A) 2 %; HCT 24.4 % (39.0-53.0); HGB 7.3 gm/dL (13.0-17.5); Hypochromasia Marked; Lymphocytes # (A) 1.1 k/uL (1.0-4.8); Lymphocytes % (A) 23 %; MCH 28.5 pg (25.0-35.0); MCV 95.1 fL (80.0-100.0); Mean Platelet Volume 8.7; Monocytes # (A) 0.4 k/uL (0-1.0); Monocytes % (A) 9 %; Neutrophils # (A) 2.9 k/uL (1.3-7.7); Neutrophils % (A) 62 %; Platelet Count 235 k/uL (150-450); RBC 2.57 m/uL (4.30-5.90); WBC 4.7 k/uL (3.8-10.6)
[2023-08-14 14:28] LABS: INR 1.1 (<1.2); Prothrombin Time 11.8 sec (10.0-12.5)
[2023-08-14 14:47] LABS: ALT 15 U/L (4-49); AST 38 U/L (17-59); African American GFR (CKD) 88 (>60 ml/min/1.73 sqM); Albumin 3.2 g/dL (3.5-5.0); Alkaline Phosphatase 83 U/L (38-126); Anion Gap 11 mmol/L; Blood Urea Nitrogen 12 mg/dL (9-20); Calcium 8.6 mg/dL (8.4-10.2); Carbon Dioxide 16 mmol/L (22-30); Chloride 115 mmol/L (98-107); Glucose 99 mg/dL (74-99); Non-African American GFR(CKD) 76 (>60 ml/min/1.73 sqM); Potassium 3.9 mmol/L (3.5-5.1); Sodium 142 mmol/L (137-145); Total Bilirubin 0.5 mg/dL (0.2-1.3); Total Protein 6.2 g/dL (6.3-8.2)
[2023-08-14 18:21] VITALS: BP 125/51; PULSE 58; RESP 16
== END 2023-08-14 18:00 | disposition other institution (70) ==
LOC: EC 11:40
DX: D64.9 Anemia, unspecified (principal); K92.2 Gastrointestinal hemorrhage, unspecified; K52.9 Noninfective gastroenteritis and colitis, unspecified
CPT/HCPCS: 36415; 80053; 82272; 85025; 85610; 86850; 86900; 86901; 99285

== ENCOUNTER 2023-08-22 11:39 | Day surgery (SDC) | payer OTHER ==
[2023-08-21 13:01] VITALS: BMI 35.5
[2023-08-22] MEDS: LACTATED RINGERS 1,000 ML IV ONE (12:40)
[2023-08-22 12:54] VITALS: RESP 16; TEMP 97.5
[2023-08-22 12:56] LABS: Anisocytosis Slight; Basophils % (A) 0 %; Eosinophils # (A) 0.1 k/uL (0-0.7); Eosinophils % (A) 1 %; HCT 28.2 % (39.0-53.0); HGB 8.7 gm/dL (13.0-17.5); Hypochromasia Moderate; Lymphocytes # (A) 1.7 k/uL (1.0-4.8); Lymphocytes % (A) 17 %; MCH 29.1 pg (25.0-35.0); MCHC 30.9 g/dL (31.0-37.0); MCV 94.2 fL (80.0-100.0); Mean Platelet Volume 8.7; Monocytes # (A) 0.8 k/uL (0-1.0); Monocytes % (A) 8 %; Neutrophils # (A) 7.5 k/uL (1.3-7.7); Neutrophils % (A) 72 %; Platelet Count 325 k/uL (150-450); WBC 10.4 k/uL (3.8-10.6)
[2023-08-22] MEDS ORDERED: PROPOFOL 10 MG/ML 20 ML VIAL IV ONE (13:24)
--- NOTE | 2023-08-22 13:42 | P.PCN ---
Date of Procedure: 08/22/23 Procedure(s) Performed: BRIEF HISTORY: Patient is a 76-year-old pleasant white male scheduled for an elective colonoscopy as a part of anemia and Hemoccult-positive stool. He presented to the emergency room a week agowith symptomatic anemia and hemoglobin of 7 g/dL requiring 1 unit of PRBC transition. he was transferred to [facility]. He had an upper endoscopy that waswas negative. He is hence scheduled for colonoscopy today.he denies any rectal bleeding or melena. Last hemoglobin was 8.5 g/dL. PROCEDURE PERFORMED: Colonoscopy. PREOPERATIVE DIAGNOSIS: Iron deficiency anemia and Hemoccult-positive stool. IV sedation per Anesthesia. PROCEDURE: After informed consent was obtained, the patient, was brought into the endoscopy unit. IV sedation was administered by Anesthesia under continuous monitoring. Digital rectal examination was normal. Initially the Olympus CF-160 flexible video colonoscope was then inserted in the rectum, gradually advanced into the cecum without any difficulty. Careful examination was performed as the scope was gradually being withdrawn. Ileocecal valve and the appendiceal orifice were visualized and appeared normal. Prep was excellent. Mucosa of the cecum, ascending colon, transverse colon, descending colon, sigmoid colon, and rectum appeared normal.scattered sigmoid diverticulosis. Retroflexion was performed in the rectum and Small internal hemorrhoidss were seen. The patient tolerated the procedure well. IMPRESSION: Normal-appearing colon from rectum to cecum no evidence of colorectal neoplasia. scattered sigmoid diverticulosis Small internal hemorrhoids RECOMMENDATIONS: Findings of this examination were discussed with the patient as well as his family. He was advised to follow with Saul mondragon in 2-3 weeks. He will be scheduled for a small bowel capsule endoscopy to evaluate further.
[2023-08-22 14:14] VITALS: BP 152/72; PULSE 62
== END 2023-08-22 14:17 | disposition home or self-care (01) ==
LOC: ORWHC2ENDO 11:39
PROVIDERS: ATTEND Internal Medicine Gastroenterology
DX: K64.8 Other hemorrhoids (principal); K57.30 Diverticulosis of large intestine without perforation or abscess without bleeding; D50.9 Iron deficiency anemia, unspecified; I10 Essential (primary) hypertension; E78.5 Hyperlipidemia, unspecified; I25.10 Atherosclerotic heart disease of native coronary artery without angina pectoris; I73.9 Peripheral vascular disease, unspecified; K21.9 Gastro-esophageal reflux disease without esophagitis; F12.90 Cannabis use, unspecified, uncomplicated; F17.200 Nicotine dependence, unspecified, uncomplicated; Z79.82 Long term (current) use of aspirin; Z79.899 Other long term (current) drug therapy; Z91.013 Allergy to seafood; Z88.2 Allergy status to sulfonamides
CPT/HCPCS: 85025; 45378; J2704

== ENCOUNTER → 2023-09-29 | Day surgery (SDC) | payer OTHER ==
[2023-09-29 07:05] VITALS: BP 166/70; PULSE 68; RESP 16; TEMP 96.8
[2023-09-29] MEDS: SIMETHICONE 40 MG/0.6 ML DROPS 2,000 MG/30 ML BOTTLE PO ONE (07:11)
== END ==
LOC: ORWHC2ENDO 06:23
PROVIDERS: ATTEND Internal Medicine Gastroenterology
DX: D64.9 Anemia, unspecified (principal)
CPT/HCPCS: 91110

== ENCOUNTER 2023-10-22 09:54 | Day surgery (SDC) | payer OTHER ==
[2023-10-21 11:56] VITALS: BMI 32.3
[2023-10-22 10:18] VITALS: RESP 16; TEMP 97.3
[2023-10-22] MEDS: LACTATED RINGERS 1,000 ML IV SCH (10:23)
[2023-10-22] MEDS: IV FLUID CONTINUATION 1,000 ML IV ONE (10:24)
[2023-10-22] MEDS: LIDOCAINE 1% (10MG/ML) FOR IV START INTRADERMA PRN (10:24)
[2023-10-22] MEDS ORDERED: PROPOFOL 10 MG/ML 20 ML VIAL IV ONE (11:00)
[2023-10-22] MEDS ORDERED: LIDOCAINE 1% INJ 10MG/ML (20 ML MDV) ONE (11:00)
--- NOTE | 2023-10-22 11:13 | P.PCN ---
Date of Procedure: 10/22/23 Procedure(s) Performed: BRIEF HISTORY: Patient is a 71-year-old, pleasant, white male scheduled for an upper endoscopy/enteroscopy as a part of evaluation of iron deficient anemia. He did have an EGD and a colonoscopy in the last 2 months that was unremarkable. 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 He is then scheduled for an upper endoscopy/enteroscopy today to evaluate for the. PROCEDURE PERFORMED: Esophagogastroduodenoscopy/enteroscopy. PREOPERATIVE DIAGNOSIS: Severe iron deficiency anemia IV sedation per anesthesia. PROCEDURE: After informed consent was obtained, the patient was brought into the endoscopy unit. IV sedation was administered by Anesthesia under continuous monitoring. Initially the Olympus GIF-140 video endoscope was inserted into the mouth. Esophagus intubated without any difficulty. It was gradually advanced into the stomach and duodenum and carefully examined. Was advanced into the proximal jejunum medically 60 cm of the jejunum was visualized and appeared entirely normal. All 4 parts of the duodenum appeared normal. The bulb and the second part of the duodenum appeared normal. The scope at this time was withdrawn to the stomach, adequately insufflated with air, and upon careful examination, mucosa of the antrum, body, cardia and the fundus appeared normal. The scope was then withdrawn into the esophagus. The GE junction was located at 39 cm from the incisors. Hiatal hernia noted. The esophagus appeared normal. There were no erosions or ulcerations seen. Small esophageal varices seen and the patient tolerated the procedure well. IMPRESSION: 1. No angioectasia or AVMs identified in the proximal jejunum or duodenal. 2. Small hiatal hernia and small esophageal varices. RECOMMENDATIONS: The findings of this examination were discussed with the patie nt as well as his family. He was advised to continue with iron supplements and monitor CBC periodically. Follow-up in the office in 2 months..
[2023-10-22 11:31] VITALS: BP 122/82; PULSE 55
== END 2023-10-22 12:07 | disposition home or self-care (01) ==
LOC: ORWHC2ENDO 09:54
PROVIDERS: ATTEND Internal Medicine Gastroenterology
DX: I85.00 Esophageal varices without bleeding (principal); D50.9 Iron deficiency anemia, unspecified; K44.9 Diaphragmatic hernia without obstruction or gangrene; F12.90 Cannabis use, unspecified, uncomplicated; I10 Essential (primary) hypertension; I73.9 Peripheral vascular disease, unspecified; I25.10 Atherosclerotic heart disease of native coronary artery without angina pectoris; E78.5 Hyperlipidemia, unspecified; Z79.82 Long term (current) use of aspirin; Z79.899 Other long term (current) drug therapy
CPT/HCPCS: 44360; J2001; J2704

== ENCOUNTER → 2023-10-24 | Outpatient (CLI) | payer OTHER ==
--- NOTE | 2023-10-24 09:37 | US ---
EXAMINATION TYPE: US liver DATE OF EXAM: 10/24/2023 COMPARISON: 10/10/2022 CLINICAL INDICATION: Male, 77 years old with history of K70.30 ALCOHOLIC CIRRHOSIS OF LIVER WITHOUT A SCITE; alcoholic cirrhosis TECHNIQUE: Multiple sonographic images of the right upper quadrant are obtained. FINDINGS: EXAM MEASUREMENTS: Liver Length: 12.7 cm Gallbladder Wall: Surgically absent CBD: 0.58 cm Right Kidney: 12.5 x 5.7 x 5.2 cm AGENT TICKETING GATE NOTES: Pancreas: Parts seen appear wnl Liver: heterogeneous and lobulated contour , no suspicious masses dilated ducts are cystic structur es. Gallbladder: Surgically absent Evidence for sonographic Adams's sign: No CBD: wnl Right Kidney: wnl IMPRESSION: Hepatic cirrhosis without suspicious mass.
[2023-10-24 16:51] LABS: Basophils # (A) 0.04 X 10*3/uL (0.00-0.10); Basophils % (A) 0.5 %; Eosinophils # (A) 0.08 X 10*3/uL (0.04-0.35); HCT 29.6 % (39.6-50.0); HGB 8.7 g/dL (13.0-17.0); Lymphocytes # (A) 1.57 X 10*3/uL (0.90-5.00); Lymphocytes % (A) 19.3 %; MCH 26.1 pg (27.0-32.0); MCHC 29.4 g/dL (32.0-37.0); MCV 88.9 FL (80.0-97.0); Monocytes # (A) 0.84 X 10*3/uL (0.20-1.00); Monocytes % (A) 10.3 %; NRBC Per 100 WBC 0 X 10*3/uL (0.00-0.01); Neutrophils # (A) 5.58 X 10*3/uL (1.80-7.70); Neutrophils % (A) 68.5 %; Platelet Count 400 X 10*3/uL (140-440); RBC 3.33 X 10*6/uL (4.40-5.60); RDW 18.4 % (11.5-14.5); WBC 8.14 X 10*3/uL (4.50-10.00)
[2023-10-24 18:27] LABS: % Iron Saturation 4.27 (15.00-50.00); BUN/Creat Ratio 11.89 Ratio (12.00-20.00); Blood Urea Nitrogen 10.7 mg/dL (9.0-27.0); Calcium 9.6 mg/dL (8.7-10.3); Carbon Dioxide 19.3 mmol/L (21.6-31.8); Chloride 107 mmol/L (96-109); Glucose 117 mg/dL (70-110); Iron 19 UG/DL (65-175); Potassium 4.1 mmol/L (3.5-5.5); Sodium 141 mmol/L (135-145); Total Iron Binding Capacity 445 UG/DL (228-460); Total Protein 7.3 g/dL (6.2-8.2)
[2023-10-24 18:28] LABS: ALT 19 U/L (10-49); AST 25 U/L (14-35); Albumin 4.3 g/dL (3.8-4.9); Albumin/Globulin Ratio 1.43 Ratio (1.60-3.17); Alkaline Phosphatase 124 U/L (41-126); Total Bilirubin 0.4 mg/dL (0.3-1.2)
[2023-10-24 18:33] LABS: Ferritin 25.4 ng/mL (22.0-322.0)
== END | disposition home or self-care (01) ==
LOC: RADUSWWP 08:57
PROVIDERS: ATTEND Internal Medicine Gastroenterology
DX: K70.30 Alcoholic cirrhosis of liver without ascites (principal)
CPT/HCPCS: 76705; 80053; 82105; 82728; 83540; 83550; 85025

== ENCOUNTER → 2023-10-30 | Outpatient (CLI) | payer OTHER ==
[2023-10-30 18:14] LABS: HCT 29.3 % (39.6-50.0); HGB 8.5 g/dL (13.0-17.0); MCH 26.2 pg (27.0-32.0); MCV 90.2 FL (80.0-97.0); NRBC Per 100 WBC 0 X 10*3/uL (0.00-0.01); Platelet Count 379 X 10*3/uL (140-440); RBC 3.25 X 10*6/uL (4.40-5.60); RDW 19.8 % (11.5-14.5); WBC 10.27 X 10*3/uL (4.50-10.00)
== END | disposition home or self-care (01) ==
LOC: LABWHC1 12:43
PROVIDERS: ATTEND Internal Medicine Gastroenterology
DX: D50.9 Iron deficiency anemia, unspecified (principal)
CPT/HCPCS: 36415; 85027

== ENCOUNTER → 2024-03-22 | Outpatient (CLI) | payer OTHER ==
--- NOTE | 2024-03-22 19:25 | CTL ---
EXAMINATION TYPE: CT Low Dose Lung DATE OF EXAM: 03/22/2024 4:59 PM COMPARISON: 03/20/2023. 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 TECHNIQUE: Multiple axial non-contrast scans were obtained from approximately the lung apices through the upper abdomen. Coronal and sagittal reformatted images were obtained. Low dose technique was uti lized. MIP were created on a separate workstation and submitted for review. CT DLP: 85 mGycm, Automated exposure control for dose reduction was used. CT Contrast: Contrast used: None Oral contrast used: None FINDINGS: Lack of intravenous contrast and low dose technique limits the evaluation of the vascular and soft ti ssue structures. LUNGS: No evidence of pulmonary fibrosis. No evidence of focal consolidation, pneumothorax or pleural effusion. Centrilobular emphysema changes. Right Bochdalek hernia. Nodules: RUL: None. RML: None. RLL: None. MARYANNE: None. LLL: None. AIRWAY: Patent and unremarkable. HEART: Size within normal limits.Atherosclerosis of the arterial vasculature. MEDIASTINUM: No gross evidence of adenopathy. VASCULATURE: No aortic aneurysm. MUSCULOSKELETAL: No acute osseous abnormalities SOFT TISSUES/LYMPH NODES: Unremarkable. LOWER NECK: No significant findings. UPPER ABDOMEN: Nodular contour to liver. The gallbladder surgically absent. IMPRESSION: 1. No clinically significant pulmonary nodules. 2. Mild emphysema. 3. Hepatic cirrhosis. 4. Post cholecystectomy changes. 5. Severe coronary artery atherosclerosis. CT LUNG RAD AND CT CHEST RECOMMENDATION: Lung-Rad 1 Negative: Continue annual screening with LDCT in 12 months. S Modifier (other clinically significant findings): None Recommend smoking cessation (if current smoker), or continuation of smoking cessation (if prior smoke r). Annual screening for lung cancer with low-dose computed tomography is recommended in adults ages 55 to 77 years who have a 30 pack-year smoking history and currently smoke or have quit within the pa st 15 years. Screening should be discontinued once a person has not smoked for 15 years or develops a health problem that substantially limits life expectancy or the ability or willingness to have curat kam lung surgery. Lung rads 2021 [email or web address] [facility], , 03/22/2024 7:22 PM
== END | disposition home or self-care (01) ==
LOC: RADCTMAIN 15:31
PROVIDERS: ATTEND Family Medicine
DX: Z12.2 Encounter for screening for malignant neoplasm of respiratory organs (principal); K74.60 Unspecified cirrhosis of liver; J43.2 Centrilobular emphysema; I25.10 Atherosclerotic heart disease of native coronary artery without angina pectoris; Z90.49 Acquired absence of other specified parts of digestive tract; Z87.891 Personal history of nicotine dependence
CPT/HCPCS: 71271

== ENCOUNTER → 2024-04-08 | Outpatient (CLI) | payer OTHER ==
[2024-04-08 19:21] LABS: Basophils # (A) 0.05 X 10*3/uL (0.00-0.10); Basophils % (A) 0.5 %; Eosinophils # (A) 0.25 X 10*3/uL (0.04-0.35); Eosinophils % (A) 2.3 %; HCT 47.3 % (39.6-50.0); HGB 15.8 g/dL (13.0-17.0); Lymphocytes # (A) 2.37 X 10*3/uL (0.90-5.00); Lymphocytes % (A) 22.2 %; MCH 33.1 pg (27.0-32.0); MCHC 33.4 g/dL (32.0-37.0); Mean Platelet Volume 10.9 FL (9.5-12.2); Monocytes % (A) 8.4 %; NRBC Per 100 WBC 0 X 10*3/uL (0.00-0.01); Neutrophils # (A) 7.08 X 10*3/uL (1.80-7.70); Neutrophils % (A) 66.3 %; Platelet Count 231 X 10*3/uL (140-440); RBC 4.78 X 10*6/uL (4.40-5.60); WBC 10.68 X 10*3/uL (4.50-10.00)
[2024-04-08 20:07] LABS: % Iron Saturation 47.18 (15.00-50.00); ALT 26 U/L (10-49); AST 25 U/L (14-35); Albumin 4.4 g/dL (3.8-4.9); Albumin/Globulin Ratio 1.69 Ratio (1.60-3.17); Alkaline Phosphatase 109 U/L (41-126); Blood Urea Nitrogen 24.4 mg/dL (9.0-27.0); Carbon Dioxide 24.2 mmol/L (21.6-31.8); Chloride 108 mmol/L (96-109); Globulin 2.6 g/dL (1.6-3.3); Glucose 98 mg/dL (70-110); Iron 159 UG/DL (65-175); Potassium 5.1 mmol/L (3.5-5.5); Sodium 144 mmol/L (135-145); Total Bilirubin 0.8 mg/dL (0.3-1.2); Total Iron Binding Capacity 337 UG/DL (228-460)
== END | disposition home or self-care (01) ==
LOC: LABWHC1 14:41
PROVIDERS: ATTEND Internal Medicine Gastroenterology
DX: D64.9 Anemia, unspecified (principal); K70.30 Alcoholic cirrhosis of liver without ascites
CPT/HCPCS: 36415; 80053; 82105; 82728; 83540; 83550; 85025